=== PATIENT | male | born 1995 | race Caucasian/White ===

== ENCOUNTER 2021-01-16 02:41 | Emergency (ER) | payer BC ==
[2021-01-16 04:06] VITALS: BP 124/88
== END 2021-01-16 04:10 | disposition home or self-care (01) ==
LOC: ED 02:41
DX: S01.511A Laceration without foreign body of lip, initial encounter (principal); K08.89 Other specified disorders of teeth and supporting structures; F17.210 Nicotine dependence, cigarettes, uncomplicated; Y04.8XXA Assault by other bodily force, initial encounter; Y92.89 Other specified places as the place of occurrence of the external cause
CPT/HCPCS: 90714

== ENCOUNTER → 2021-11-25 | Outpatient (CLI) | payer OTHER, BC | LOC: RAD 07:45 | DX: S22.009D Unspecified fracture of unspecified thoracic vertebra, subsequent encounter for fracture with routine healing (principal); S22.000A Wedge compression fracture of unspecified thoracic vertebra, initial encounter for closed fracture | CPT/HCPCS: A9585 ==

== ENCOUNTER → 2021-11-27 | Outpatient (CLI) | payer OTHER, BC | LOC: RAD 15:57 | DX: S12.9XXD Fracture of neck, unspecified, subsequent encounter (principal); S16.1XXD Strain of muscle, fascia and tendon at neck level, subsequent encounter ==